=== PATIENT | male | born 1965 | race Two or more races ===

== ENCOUNTER 2022-01-18 00:14 | Emergency (ER) | payer OTHER ==
[~2022-01-18] VITALS: Ht 172.7 cm; Wt 79.4 kg
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
[2022-01-18] MEDS ORDERED: ONDANSETRON HCL/PF 4 MG/2 ML VIAL ONE (00:38)
[2022-01-18] MEDS ORDERED: TDAP [DIPH/PERTUSSIS/TET] 0.5 ML VIAL IM ONE ×2 (00:39→01:00)
[2022-01-18] MEDS ORDERED: MORPHINE SULFATE INJ 4 MG/ML DISP.SYRIN ONE (00:39)
--- NOTE | 2022-01-18 00:42 | NUR ---
BLOOD COLLECTED AND SENT TO LAB
[2022-01-18] MEDS ORDERED: ONDANSETRON HCL/PF 4 MG/2 ML VIAL IVP ONE (01:00)
[2022-01-18] MEDS ORDERED: MORPHINE SULFATE INJ 2 MG/ML DISP.SYRIN IV ONE (01:00)
[2022-01-18 01:04] LABS: BASOPHILS % (AUTO) 0.6 % (0.0-2.0); EOSINOPHILS % (AUTO) 0.7 % (0.0-6.0); HEMATOCRIT 45 % (39-51); LYMPHOCYTES % (AUTO) 27.4 % (20.0-44.0); MEAN CORPUSCULAR HGB CONC 33 g/dl (31.0-36.0); MEAN CORPUSCULAR VOLUME 81 fL (80-96); MONOCYTES # (AUTO) 0.8 K/uL (0.1-1.30); NEUTROPHILS # (AUTO) 4.3 K/uL (1.8-8.9); NEUTROPHILS % (AUTO) 60.3 % (43.0-81.0); PLATELET COUNT (AUTO) 188 K/uL (150-450); WHITE BLOOD COUNT (AUTO) 7.2 K/uL (4.3-11.0)
[2022-01-18 01:06] LABS: CALCIUM, SERUM 8.7 mg/dL (8.5-10.1); POTASSIUM 3.8 mmol/L (3.5-5.1)
[2022-01-18 01:12] LABS: BILIRUBIN,DIRECT 0.1 mg/dL (0.0-0.2); BILIRUBIN,TOTAL 0.4 mg/dL (0.2-1.0); TOTAL PROTEIN, SERUM 7.3 g/dL (6.4-8.2)
[2022-01-18] MEDS ORDERED: IV NS 0.9% 250 ML IV ONE (01:12)
[2022-01-18] MEDS ORDERED: IOHEXOL-300 100 ML VIAL IV ONE (01:12)
[2022-01-18] MEDS ORDERED: CT SWABBABLE VALVE TRANS SET 1 EA INFUS.SET MC ONE (01:12)
[2022-01-18] MEDS ORDERED: HYDR-3972 PO (05:26)
--- NOTE | 2022-01-18 05:35 | NUR ---
KAREN WRAP TO RIGHT WRIST APPLIED & PT TOLERATING WELL
[2022-01-18 05:42] VITALS: BP 130/66
--- NOTE | 2022-01-18 05:42 | NUR ---
Patient discharged to home in stable condition. Written and verbal after care instructions given. Patient verbalizes understanding of instruction.
== END 2022-01-18 05:43 | disposition home or self-care (01) ==
LOC: ER 00:34
DX: S00.83XA Contusion of other part of head, initial encounter (principal); S50.11XA Contusion of right forearm, initial encounter; S20.211A Contusion of right front wall of thorax, initial encounter; S30.1XXA Contusion of abdominal wall, initial encounter; S70.01XA Contusion of right hip, initial encounter; S80.212A Abrasion, left knee, initial encounter; S80.211A Abrasion, right knee, initial encounter; Z60.2 Problems related to living alone; Z79.891 Long term (current) use of opiate analgesic; W11.XXXA Fall on and from ladder, initial encounter; Y93.89 Activity, other specified; Y92.89 Other specified places as the place of occurrence of the external cause; Y99.8 Other external cause status
CPT/HCPCS: 36415; 70450; 70486; 71260; 72125; 73030; 73090; 73130; 73502; 74177; 80048; 80076; 85025; 85730; 86850; 90471; 90715; 96374; 96375; 99285; J2270; J2405; J7050; L0172; Q9967

== ENCOUNTER 2022-11-25 20:37 | Emergency (ER) | payer OTHER ==
[~2022-11-25] VITALS: Ht 172.7 cm; Wt 95.3 kg
[~2022-11-25 20:37] MED LIST: HYDR-3972 PO
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
[2022-11-25] MEDS ORDERED: oxyCODONE/APAP (5/325 MG) 1 UDTAB TABLET PO ONE (22:30)
[2022-11-25] MEDS ORDERED: oxyCODONE/APAP (5/325 MG) 1 UDTAB TABLET ONE ×2 (22:37)
--- NOTE | 2022-11-25 22:47 | NUR ---
industrial engineering technologist at pt's bedside
[2022-11-25] MEDS ORDERED: OXYC-128 PO (23:28)
[2022-11-25 23:45] VITALS: BP 132/70
== END 2022-11-25 23:48 | disposition home or self-care (01) ==
LOC: ER 20:39
DX: S52.511A Displaced fracture of right radial styloid process, initial encounter for closed fracture (principal); S50.312A Abrasion of left elbow, initial encounter; Z60.2 Problems related to living alone; W01.0XXA Fall on same level from slipping, tripping and stumbling without subsequent striking against object, initial encounter; Y93.89 Activity, other specified; Y92.89 Other specified places as the place of occurrence of the external cause; Y99.8 Other external cause status
CPT/HCPCS: 73080-TC; 73090-TC; 73110; 73130-TC